=== PATIENT | male | born 1955 | race African-American/Black ===

== ENCOUNTER 2021-07-16 06:23 | Emergency (ER) | payer SELFPAY ==
[~2021-07-16] VITALS: Ht 182.9 cm; Wt 91.0 kg
[2021-07-16] MEDS ORDERED: OXYMETAZOLINE HCL NASAL SPRAY 15ML BOTHNSTRLS SCH (07:00)
[2021-07-16 08:24] LABS: BASOPHILS % 0.1 % (0.0-2.0); EOSINOPHILS % 0.4 % (0.0-5.0); HEMATOCRIT. 49.6 % (42.0-52.0); LYMPHOCYTES % 11.3 % (20.0-50.0); MEAN CORPUSCULAR HEMOGLOBIN 25.9 pg (28.0-32.0); MEAN CORPUSCULAR VOLUME 80.6 fL (80.0-94.0); MEAN PLATELET VOLUME 9.5 fl (7.4-10.4); MONOCYTES % 7.2 % (2.0-8.0); PLATELET 188 x1000/uL (130-400); RED BLOOD CELL COUNT 6.16 mill/uL (4.7-6.1); RED CELL DISTRIBUTION WIDTH 18.8 % (11.6-14.6)
[2021-07-16 08:32] LABS: CHLORIDE 102 mEq/L (98-107)
[2021-07-16 11:41] VITALS: BP 157/64
== END 2021-07-16 12:15 | disposition left against medical advice (07) ==
LOC: ER 06:51
DX: R04.0 Epistaxis (principal); I11.9 Hypertensive heart disease without heart failure
CPT/HCPCS: 36415; 80053; 85025; 99283